=== PATIENT | female | born 1980 | race Two or more races ===

== ENCOUNTER 2016-05-14 11:27 | Emergency (ER) | payer OTHER ==
[~2016-05-14] VITALS: Ht 157.5 cm; Wt 67.2 kg
[2016-05-14 11:31] VITALS: Ht 157.5 cm; Wt 67.2 kg
[2016-05-14] MEDS ORDERED: KETOROLAC 30 MG INJ IV STA (12:44)
--- NOTE | 2016-05-14 12:54 | ERD ---
ER Documentation Chief Complaint Date/Time DATE: 05/14/16 TIME: 12:48 Chief Complaint ANXIETY,TEARFUL, HAS NECK PAIN, HPI 35-year-old female presents to the emergency department complaining of chest pain radiating to her left shoulder and scapular area as well as shortness of breath and migraine headache which began soon after waking up this morning. Patient states the chest pain and shortness of breath subsided so she decided to go to work. Patient states she experiences symptoms again while at work so left to come here to be evaluated. Patient states she has never experienced these symptoms in the past. Patient currently reports a 2 out of 10 dull chest pain which radiates to her left shoulder. Patient reports her headache pain at a constant circumferential throbbing 6 out of 10 currently. Patient notes history of migraine headaches. Patient also notes dry mouth, dizziness. She denies any cough or recent illness. She states that her father of a heart attack at age 70. She reports her mother has heart problems but is still alive and well. Patient denies any lower extremity pain or swelling, recent travel, history of cancer, wheezing, coughing, angioedema, dysuria, hematuria, nausea, vomiting, diarrhea. ROS All systems reviewed and are negative except as per history of present illness. Medications Home Meds No Active Prescriptions or Reported Meds Allergies Allergies: Coded Allergies: No Known Allergy (Unverified , 09/17/13) PMhx/Soc Medical and Surgical Hx: pt denies Medical Hx, pt denies Surgical Hx Hx Alcohol Use: No Hx Substance Use: No Hx Tobacco Use: No Smoking Status: Never smoker Physical Exam Vitals Vital Signs Date Time Temp Pulse Resp B/P Pulse Ox O2 Delivery O2 Flow Rate FiO2 05/14/16 11:31 98.1 84 20 121/81 99 Physical Exam Const: Well-developed, well-hydrated, nontoxic appearing, in mild distress Head: Atraumatic Eyes: Normal Conjunctiva ENT: Normal External Ears, Nose and Mouth. Neck: Full range of motion..~ No meningismus. Resp: Clear to auscultation bilaterally, no wheezes, rhonchi, or Cardio: Regular rate and rhythm, no murmurs Abd: Soft, non tender, non distended. Normal bowel sounds Skin: No petechiae or rashes Back: No midline or flank tenderness Ext: No cyanosis, or edema Neur: Awake and alert Psych: Normal Mood and Affect Result Diagram: 05/14/16 1314 Results 24 hrs Laboratory Tests Test 05/14/16 13:05 05/14/16 13:14 Urine Bilirubin NEGATIVE Urine Clarity SLIGHTLY CLOUDY Urine Color LT. YELLOW Urine Glucose NEGATIVE% Urine Hemoglobin 3+ Urine Ketones NEGATIVE Urine Leukocyte Esterase NEGATIVE Urine Microscopic RBC >200/HPF Urine Microscopic WBC NONE SEEN/HPF Urine Nitrite NEGATIVE Urine Specific [place] 1.010 Urine Squamous Epithelial Cells FEW Urine Total Protein NEGATIVE Urine Urobilinogen 0.2 E.U./dL Urine pH 7.0 Alanine Aminotransferase (ALT/SGPT) 25IU/L Albumin 4.5g/dl Albumin/Globulin Ratio 1.18 Alkaline Phosphatase 75IU/L Anion Gap 16 Aspartate Amino Transf (AST/SGOT) 24IU/L Blood Urea Nitrogen 12mg/dl Calcium Level 9.4mg/dl Carbon Dioxide Level 29mmol/L Chloride Level 103mmol/L Creatinine 0.69mg/dl Direct Bilirubin 0.00mg/dl Globulin 3.80g/dl Glucose Level 81mg/dl Indirect Bilirubin 0.1mg/dl Potassium Level 3.8mmol/L Sodium Level 144mmol/L Total Bilirubin 0.1mg/dl Total Protein 8.3g/dl Troponin I < 0.012ng/ml Current Medications Medications (Trade) Dose Ordered Sig/Yuli Route PRN Reason Start Time Stop Time Status Last Admin Dose Admin Acetaminophen (Tylenol Tab) 650 mg ONCE ONCE PO 05/14/16 13:00 05/14/16 13:01 DC 05/14/16 13:24 Ketorolac Tromethamine (Toradol) 30 mg ONCE STAT IV 05/14/16 12:44 05/14/16 12:49 DC 05/14/16 13:24 Metoclopramide HCl 10 mg 10 mg ONCE ONCE IV 05/14/16 13:00 05/14/16 13:01 DC 05/14/16 13:24 Sodium Chloride (NS) 1,000 ml @ 1,000 mls/hr Q1H ONCE IV 05/14/16 13:00 05/14/16 13:59 DC 05/14/16 13:30 Procedures/MDM PROCEDURE: Chest x-ray CLINICAL INDICATION: Chest pain TECHNIQUE: Chest single view COMPARISON: None FINDINGS: The heart is normal in size. The pulmonary vessels are normal in caliber. The lungs are clear. The costophrenic angles are sharp. The visualized bony thorax is unremarkable. IMPRESSION: No acute cardiopulmonary disease. RPTAT: HH .Delta Huston MD, Date Time Electronically viewed and signed by .Delta Huston MD, on 05/14/2016 14:03 .W/ CC: VENTURA HINOJOSA-Connie Chest X-ray 1V Interpreted by me: Soft Tissue: No acute abnormalities, heart normal size, no sign of pneumothorax Bones: No acute abnormalities , no evidence of fracture Mediastinum/Cardiac Silhouette/Lungs: No acute abnormalities EKG: Rate/Rhythm: Normal Sinus Rhythm QRS, ST, T-waves: No changes consistent w/ acute ischemia Impression: No evidence of ischemia or arrhythmia This is a 35-year-old otherwise healthy female who presents with chest pain and shortness of breath since this more. Vital signs were reviewed. Patient is afebrile. Patient is not hypoxic. Patient is normotensive and not tachycardic. (Exam) ENT exam was normal. CBC showed no evidence of systemic infection or severe anemia. CMP showed no evidence of electrolyte abnormalities, severe acidosis, alkalosis , renal failure, or liver disease. UA showed no evidence of acute infection or hematuria. Urine test was negative. She received bolus of fluids as well as Toradol and Tylenol for headache pain. Given these findings, the patients presentation is most consistent with acute stress reaction. I have a low suspicion for acute coronary syndrome, aortic dissection, pulmonary embolism, tension pneumothorax pneumonia, bronchitis, ectopic , tubal ovarian abscess, severe anemia, or sepsis. Based on patient's history of present illness and physical examination the decision was made to discharge. The patient was re-evaluated after ED treatment and stabilizing measures, and symptoms have improved. There is no evidence of life threatening injuries or illnesses at this time. On re-examination, patient resting in no distress, stable vital signs, reports feeling better and safe for discharge with outpatient follow up with PMD in 1-2 days. Patient given return precautions. Patient provided with short course of anxiolytics and instructions for stress coping skills. VENTURA HINOJOSA PA-C May 14, 2016 12:54
[2016-05-14] MEDS ORDERED: SOD CHLORIDE 0.9% 1,000 ML IV ONE (13:00)
[2016-05-14] MEDS ORDERED: ACETAMINOPHEN 325 MG TAB PO ONE (13:00)
[2016-05-14] MEDS ORDERED: METOCLOPRAMIDE 10 MG INJ IV ONE (13:00)
[2016-05-14 13:31] LABS: BASOPHIL # 0.1 10^3/ul (0.0-0.1); BASOPHILS % 0.7 % (0.0-2.0); EOSINOPHILS # 0.1 10^3/ul (0.0-0.5); EOSINOPHILS % 0.9 % (0.0-7.0); HEMATOCRIT 37.7 % (37.0-47.0); HEMOGLOBIN 12.3 g/dl (12.0-16.0); LYMPHOCYTES # 3.1 10^3/ul (0.8-2.9); LYMPHOCYTES % 32.6 % (15.0-51.0); MEAN CORPUSCULAR HEMOGLOBIN 23.9 pg (29.0-33.0); MEAN CORPUSCULAR HGB CONC 32.5 g/dl (32.0-37.0); MEAN CORPUSCULAR VOLUME 73.5 fl (82.0-101.0); MEAN PLATELET VOLUME 9.8 fl (7.4-10.4); MONOCYTE # 0.5 10^3/ul (0.3-0.9); MONOCYTES % 5.4 % (0.0-11.0); NEUTROPHIL # 5.7 10^3/ul (1.6-7.5); NEUTROPHILS % 60.4 % (39.0-77.0); PLATELET COUNT 298 10^3/UL (140-440); RED BLOOD COUNT 5.13 10^6/ul (4.20-5.40); RED CELL DISTRIBUTION WIDTH 15.2 % (11.5-14.5); UNCORRECTED WBC 9.4 10^3/ul (4.8-10.8); WHITE BLOOD COUNT 9.4 10^3/ul (4.8-10.8)
[2016-05-14 13:42] LABS: ALBUMIN 4.5 g/dl (3.3-4.9)
[2016-05-14 13:43] LABS: CHLORIDE 103 mmol/L (97-110); POTASSIUM 3.8 mmol/L (3.5-5.1); SODIUM 144 mmol/L (135-144)
[2016-05-14 13:45] LABS: ANION GAP 16 (8-16); ASPARTATE AMINO TRANSFERASE 24 IU/L (15-46); BILIRUBIN,INDIRECT 0.1 mg/dl (0-1.1); BILIRUBIN,TOTAL 0.1 mg/dl (0.2-1.3); CARBON DIOXIDE 29 mmol/L (21-31); CREATININE 0.69 mg/dl (0.44-1.00)
[2016-05-14 13:46] LABS: ALANINE AMINOTRANSFERASE 25 IU/L (13-69); ALBUMIN/GLOBULIN RATIO 1.18; ALKALINE PHOSPHATASE 75 IU/L (42-121); BLOOD UREA NITROGEN 12 mg/dl (7-20); CALCIUM 9.4 mg/dl (8.4-10.2); GLUCOSE 81 mg/dl (70-220); TOTAL PROTEIN 8.3 g/dl (6.1-8.1)
[2016-05-14 13:54] LABS: TROPONIN-I < 0.012 ng/ml (0.00-0.12)
[2016-05-14 13:56] LABS: ADD UMIC YES; URINE BILIRUBIN (Dip) NEGATIVE (NEGATIVE); URINE BLOOD (Dip) 3+ (NEGATIVE); URINE COLOR LT. YELLOW (YELLOW); URINE GLUCOSE (Dip) NEGATIVE (NEGATIVE); URINE KETONES (Dip) NEGATIVE (NEGATIVE); URINE LEUKOCYTE ESTERASE (Dip) NEGATIVE (NEGATIVE); URINE NITRITE (Dip) NEGATIVE (NEGATIVE); URINE TOTAL PROTEIN (Dip) NEGATIVE (NEGATIVE); URINE UROBILINOGEN (Dip) 0.2 E.U./dL (0.1-1.0)
--- NOTE | 2016-05-14 14:03 | RADRPT ---
PROCEDURE: Chest x-ray CLINICAL INDICATION: Chest pain TECHNIQUE: Chest single view COMPARISON: None FINDINGS: The heart is normal in size. The pulmonary vessels are normal in caliber. The lungs are clear. Th e costophrenic angles are sharp. The visualized bony thorax is unremarkable. IMPRESSION: No acute cardiopulmonary disease. RPTAT: HH .Delta Huston MD, Date Time Electronically viewed and signed by .Delta Huston MD, MD on 05/14/2016 14:03 .W/
[2016-05-14 14:16] LABS: SQUAMOUS EPITHELIAL CELL,UR FEW; URINE RBCS >200 /HPF (0)
[2016-05-14] MEDS ORDERED: NAPR-260 PO (14:28)
[2016-05-14] MEDS ORDERED: LORA1TAB PO (14:28)
[2016-05-14 14:31] LABS: CONDITION 1; LH ANALYZER COMMENTS 1
[2016-05-14 16:01] VITALS: BP 105/78; PULSE 75; RESP 18; TEMP 98
== END 2016-05-14 16:02 | disposition home or self-care (01) ==
LOC: FTE 11:27
DX: R51 Headache (principal); F43.0 Acute stress reaction; R06.02 Shortness of breath
CPT/HCPCS: 71010; 80053; 81001; 84484; 85025; 93005; 96374; 96375; 99285; J1885; J2765; J7030; 81003

== ENCOUNTER 2018-10-01 23:11 | Emergency (ER) | payer OTHER ==
[~2018-10-01] VITALS: Ht 165.1 cm; Wt 70.0 kg
[~2018-10-01 23:11] MED LIST: LORA1TAB PO; NAPR-985 PO
[2018-10-01 23:22] VITALS: Ht 165.1 cm; Wt 70.0 kg
[2018-10-02] MEDS ORDERED: ONDANSETRON (ODT) 4 MG TAB ODT STA (01:12)
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
[2018-10-02] MEDS ORDERED: HYDROCODONE/APAP (5/325) TAB PO ONE (01:30)
[2018-10-02] MEDS ORDERED: IBUP800T48 PO (04:22)
[2018-10-02] MEDS ORDERED: ONDA4TAB8 PO (04:23)
[2018-10-02] MEDS ORDERED: CYCL10TA7 PO (04:23)
[2018-10-02 04:45] VITALS: BP 97/55; PULSE 65; RESP 18
== END 2018-10-02 04:46 | disposition home or self-care (01) ==
LOC: FTE 23:11
DX: S06.0X0A Concussion without loss of consciousness, initial encounter (principal); S20.219A Contusion of unspecified front wall of thorax, initial encounter; V43.62XA Car passenger injured in collision with other type car in traffic accident, initial encounter
CPT/HCPCS: 70450; 71046; 72125; 81025